=== PATIENT | female | born 1945 | race Two or more races ===

== ENCOUNTER → 2019-04-04 | Outpatient (CLI) | payer OTHER ==
[~2019-04-04] MED LIST: CEFADROXIL500 MG PO; DIOVAN320 MG PO; PAXIL10 MG/5 ML; PAXIL20 MG PO; SYNTHROID150 MCG PO; SYNTHROID200 MCG PO
== END | disposition home or self-care (01) ==
LOC: RAD 14:05
DX: Z01.810 Encounter for preprocedural cardiovascular examination (principal); Z12.31 Encounter for screening mammogram for malignant neoplasm of breast

== ENCOUNTER 2019-04-10 15:04 | Outpatient (CLI) | payer OTHER ==
[~2019-04-10 15:04] MED LIST changes: -DIOVAN320 MG PO; -PAXIL20 MG PO; -SYNTHROID150 MCG PO
[2019-04-12] MEDS ORDERED: DIOVAN320 MG PO (13:19)
[2019-04-12] MEDS ORDERED: SYNTHROID150 MCG PO (13:19)
[2019-04-12] MEDS ORDERED: PAXIL20 MG PO (13:20)
== END 2019-04-10 15:12 | disposition home or self-care (01) ==
LOC: EKG 15:04
DX: I10 Essential (primary) hypertension (principal)

== ENCOUNTER 2019-04-16 06:00 | Day surgery (SDC) | payer OTHER ==
[~2019-04-16 06:00] MED LIST changes: +DIOVAN320 MG PO; +PAXIL20 MG PO; +SYNTHROID150 MCG PO
== END 2019-04-16 10:35 | disposition home or self-care (01) ==
LOC: CIR.AMB 06:00
DX: M67.431 Ganglion, right wrist (principal)

== ENCOUNTER → 2019-10-25 | Outpatient (CLI) | payer OTHER | END | disposition home or self-care (01) | LOC: RAD 12:52 | DX: M25.532 Pain in left wrist (principal); M25.531 Pain in right wrist ==

== ENCOUNTER 2023-08-08 14:59 | Outpatient (CLI) | payer OTHER | END 2023-08-08 15:34 | disposition home or self-care (01) | LOC: MAMO-SONO 14:59 | PROVIDERS: ATTEND Obstetrics & Gynecology | DX: R19.00 Intra-abdominal and pelvic swelling, mass and lump, unspecified site (principal); N63.10 Unspecified lump in the right breast, unspecified quadrant; N63.20 Unspecified lump in the left breast, unspecified quadrant; Z12.31 Encounter for screening mammogram for malignant neoplasm of breast ==